=== PATIENT | male | born 1960 | race Caucasian/White ===

== ENCOUNTER 2017-12-26 19:09 | Emergency (ER) | payer MEDICARE, MEDICAID ==
[~2017-12-26] VITALS: Ht 165.1 cm; Wt 68.0 kg
[2017-12-27] MEDS ORDERED: KETOROLAC 30MG/ML VIAL IV ONE (01:30)
[2017-12-27] MEDS ORDERED: ONDANSETRON 4MG ODT PO ONE (01:30)
[2017-12-27 02:22] LABS: EOSINOPHILS % 1.6 % (0.0-5.0); HEMATOCRIT. 45.9 % (42.0-52.0); HEMOGLOBIN. 15.8 g/dL (14.0-18.0); MEAN CORPUSCULAR HEMOGLOBIN 34.9 pg (28.0-32.0); MEAN CORPUSCULAR VOLUME 101.2 fL (80.0-94.0); MEAN PLATELET VOLUME 8.6 fl (7.4-10.4); MONOCYTES % 9.8 % (2.0-8.0); NEUTROPHILS % 63.6 % (40.0-76.0); PLATELET 215 x1000/uL (130-400); RED BLOOD CELL COUNT 4.54 mill/uL (4.7-6.1); RED CELL DISTRIBUTION WIDTH 13.3 % (11.6-14.6)
[2017-12-27 02:27] LABS: CHLORIDE 101 mEq/L (98-107); PROTHROMBIN TIME 10.1 sec (9.4-11.6)
[2017-12-27 03:33] LABS: CLARITY URINE CLEAR (CLEAR); COLOR URINE YELLOW (YELLOW); KETONES URINE TRACE (NEGATIVE); LEUKOCYTE ESTERASE URINE NEGATIVE (NEGATIVE); NITRITE URINE NEGATIVE (NEGATIVE); OCCULT BLOOD URINE NEGATIVE (NEGATIVE); PROTEIN URINE NEGATIVE (NEGATIVE); SPECIFIC GRAVITY URINE 1.049 (1.005-1.030); UROBILINOGEN URINE 0.2 E.U./dL (0.2-1.0)
[2017-12-27 03:42] VITALS: BP 158/98
== END 2017-12-27 04:10 | disposition home or self-care (01) ==
LOC: ER 21:26
DX: M75.31 Calcific tendinitis of right shoulder (principal); M43.16 Spondylolisthesis, lumbar region; E11.65 Type 2 diabetes mellitus with hyperglycemia; I10 Essential (primary) hypertension; J45.909 Unspecified asthma, uncomplicated; F12.10 Cannabis abuse, uncomplicated; F17.200 Nicotine dependence, unspecified, uncomplicated; Z98.890 Other specified postprocedural states; W01.0XXA Fall on same level from slipping, tripping and stumbling without subsequent striking against object, initial encounter; Y93.89 Activity, other specified; Y92.018 Other place in single-family (private) house as the place of occurrence of the external cause
CPT/HCPCS: 36415; 72100; 73030; 80053; 81001; 85025; 85610; 96374; 99285; J1885; Q0162